=== PATIENT | female | born 1950 | race Caucasian/White ===

== ENCOUNTER 2019-03-02 11:36 | Emergency (ER) | payer OTHER ==
[~2019-03-02] VITALS: Ht 167.6 cm; Wt 99.8 kg
[2019-03-02] MEDS: ACETAMINOPHEN 325 MG TABLET PO ONE (12:20)
--- NOTE | 2019-03-02 12:33 | RAD ---
CT HEAD WO CONTRAST Clinical indications: Trauma. Taking Eliquis. COMPARISON: None available. Technique: Noncontrast axial cross sectional scanning of the head was performed. PQRS compliance Statement One or more of the following individualized dose reduction techniques were utilized for this study: 1. Automated exposure control 2. Adjustment of the mA and/or kV according to patient size 3. Use of iterative reconstruction technique Findings: No acute intracranial hemorrhage or midline shift or mass-effect or hydrocephalus or extra-axial fluid collection is seen. No focal hypodense area or sulci effacement is seen to indicate an acute infarct or edema radiographically. Small subcutaneous soft tissue hematoma of the posterior right parietal region near the midline is seen. No underlying skull fracture or pneumocephalus is seen. No opacification of the mastoid sinuses or the paranasal sinuses is seen. The maxillary sinuses are not completely seen in this study. Impression: No acute intracranial abnormality is seen. Electronically signed by: Junior Hernandez MD (03/02/2019 12:30 PM) [id number]
--- NOTE | 2019-03-02 12:34 | RAD ---
Right ankle, 3 views, 03/02/2019: HISTORY: Injury No ankle fracture or dislocation is identified. There is mild soft tissue swelling laterally. Right foot, 3 views, 03/02/2019: There is a transverse fracture of the proximal fifth metatarsal. There is slight distraction of the fracture fragments at the fracture site. No other fracture or dislocation is identified. There are mild scattered degenerative changes. IMPRESSION: Acute fracture of the base of the fifth metatarsal. Electronically signed by: Carlos Harrell MD (03/02/2019 12:31 PM) [facility]
[2019-03-02] MEDS ORDERED: HYDR-3165 PO (13:08)
--- NOTE | 2019-03-02 13:09 | PHYS DOC ---
Past History Past Medical History: CVA, DVT, Other Past Surgical History: Other Alcohol Use: None Drug Use: None Adult General Chief Complaint Chief Complaint: MECHANICAL FALL HPI HPI Patient is a 68-year-old female who is presenting with chief complaint of fall. She fell off of a chair while she was at work she was trying to reach something she is on M[employer] [place] for a prior history of DVT and PE. She hit her head no loss of consciousness emesis times one no chest pain no abdominal pain positive right ankle and right foot pain. Moderate dull nonradiating worsening with time no other exacerbating factors Review of Systems Review of Systems Constitutional: Denies fever or chills [] Eyes: Denies change in visual acuity, redness, or eye pain [] GI: Denies abdominal pain, nausea, vomiting, bloody stools or diarrhea [] : Denies dysuria or hematuria [] All other systems were reviewed and found to be within normal limits, except as documented in this note. Current Medications Current Medications Current Medications Medications (Trade) Dose Ordered Sig/Carmelita Start Time Stop Time Status Last Admin Dose Admin Acetaminophen (Tylenol) 650 mg 1X ONCE 03/02/19 12:15 03/02/19 12:16 DC 03/02/19 12:20 650 MG Allergies Allergies Allergies Coded Allergies Type Severity Reaction Last Updated Verified sulfamethoxazole Allergy Unknown 03/02/19 Yes trimethoprim Allergy Unknown 03/02/19 Yes Physical Exam Physical Exam Constitutional: Well developed, well nourished, no acute distress, non-toxic appearance. [] HENT: Normocephalic, atraumatic, bilateral external ears normal, oropharynx moist, no oral exudates, nose normal. [] Eyes: PERRLA, EOMI, conjunctiva normal, no discharge. [] Neck: Normal range of motion, no tenderness, supple, no stridor. [] Cardiovascular:Heart rate regular rhythm, no murmur [] Lungs & Thorax: Bilateral breath sounds clear to auscultation [] Abdomen: Bowel sounds normal, soft, no tenderness, no masses, no pulsatile masses. [] Skin: Warm, dry, no erythema, no rash. [] Back: No tenderness, no CVA tenderness. [] Extremities: No tenderness, no cyanosis, no clubbing, ROM intact, no edema. [] Neurologic: Alert and oriented X 3, normal motor function, normal sensory function, no focal deficits noted. [] Psychologic: Affect normal, judgement normal, mood normal. [] Current Patient Data Vital Signs Vital Signs Date Time Temp Pulse Resp B/P (MAP) Pulse Ox O2 Delivery O2 Flow Rate FiO2 03/02/19 11:46 97.9 66 18 95 Room Air EKG EKG [] Radiology/Procedures Radiology/Procedures [] Impressions: Findings: No acute intracranial hemorrhage or midline shift or mass-effect or hydrocephalus or extra-axial fluid collection is seen. No focal hypodense area or sulci effacement is seen to indicate an acute infarct or edema radiographically. Small subcutaneous soft tissue hematoma of the posterior right parietal region near the midline is seen. No underlying skull fracture or pneumocephalus is seen. No opacification of the mastoid sinuses or the paranasal sinuses is seen. The maxillary sinuses are not completely seen in this study. Impression: No acute intracranial abnormality is seen. Electronically signed by: Junior Hernandez MD (03/02/2019 12:30 PM) [place] [id number] There is a transverse fracture of the proximal fifth metatarsal. There is slight distraction of the fracture fragments at the fracture site. No other fracture or dislocation is identified. There are mild scattered degenerative changes. IMPRESSION: Acute fracture of the base of the fifth metatarsal. Electronically signed by: Carlos Harrell MD (03/02/2019 12:31 PM) [facility] DICTATED AND SIGNED BY: CARLOS HARRELL MD DATE: 03/02/19 1231 CC: JEFFREY WASHINGTON MD; PCP,NO ~ DICTATED AND SIGNED BY: JUNIOR HERNANDEZ MD DATE: 03/02/19 1230 CC: JEFFREY WASHINGTON MD; PCP,NO ~ Course & Med Decision Making Course & Med Decision Making Pertinent Labs and Imaging studies reviewed. (See chart for details) CT head negative patient on Minoo Charlie overall minor mechanism of injury. I did give the patient precautions to return should there be any signs of delayed intracranial hemorrhage although this is quite low risk overall. She is aware of the risks. In addition patient has a fifth metatarsal fracture base of fifth probably Dale fracture short-leg splint crutches in the emergency room I checked the splint is in position patient is neurovascularly intact with a precautions were discussed follow-up with orthopedics. [] Dragon Disclaimer Dragon Disclaimer This electronic medical record was generated, in whole or in part, using a voice recognition dictation system. Departure Departure: Impression: Primary Impression: Fracture of fifth metatarsal bone Disposition: HOME, SELF-CARE Condition: STABLE Referrals: PCP,NO (PCP) Patient Instructions: Metatarsal Fracture, Undisplaced Additional Instructions: CALL [facility] AT [phone] FOR ORTHOPEDICS FOLLOW UP\ WITHIN ONE WEEK. Scripts Hydrocodone Bit/Acetaminophen (NORCO 5-325 TABLET) 1 Each Tablet 1-2 TAB PO Q4-6HRS PRN for PAIN, #15 TAB Prov: JEFFREY WASHINGTON MD 03/02/19 JEFFREY WASHINGTON MD March 02, 2019 13:09
[2019-03-02 13:19] VITALS: BP 133/72
[2019-03-02] MEDS: oxyCODONE IR 5 MG TABLET PO STA (13:34)
[2019-03-02] MEDS: ONDANSETRON ODT 4 MG TAB.RAPDIS PO ONE (13:34)
== END 2019-03-02 13:40 | disposition home or self-care (01) ==
LOC: ER 11:45
DX: S92.351A Displaced fracture of fifth metatarsal bone, right foot, initial encounter for closed fracture (principal); R51 Headache; Z79.01 Long term (current) use of anticoagulants; Z86.73 Personal history of transient ischemic attack (TIA), and cerebral infarction without residual deficits; Z86.718 Personal history of other venous thrombosis and embolism; Z88.2 Allergy status to sulfonamides; Z88.1 Allergy status to other antibiotic agents; W07.XXXA Fall from chair, initial encounter; Y93.89 Activity, other specified; Y92.89 Other specified places as the place of occurrence of the external cause; Y99.0 Civilian activity done for income or pay
CPT/HCPCS: 29125; 70450; 73610; 73630; 99284; Q0162